=== PATIENT | female | born 1990 ===

== ENCOUNTER → 2016-09-08 | Outpatient (CLI) | payer OTHER ==
[2016-09-08 19:02] LABS: ALT/SGPT 40 U/L (12-78); BLOOD UREA NITROGEN 8 mg/dl (7-18); BUN/CREATININE RATIO 12.1 (10-20); CALCIUM 8.8 mg/dl (8.5-10.1); CARBON DIOXIDE 24 mmol/L (21-32); CHLORIDE 104 mmol/L (98-107); CREATININE 0.63 mg/dl (0.60-1.20); GLUCOSE 80 mg/dl (70-99); POTASSIUM 3.7 mmol/L (3.5-5.1); SODIUM 139 mmol/L (136-145)
[2016-09-08 19:13] LABS: ALB/GLOB RATIO 1.3 (0.9-2); ALKALINE PHOSPHATASE 87 U/L (45-117); AST/SGOT 31 U/L (15-37)
== END | disposition home or self-care (01) ==
LOC: C.LABSPEC 11:02
PROVIDERS: ATTEND Family Medicine
DX: R53.83 Other fatigue (principal)

== ENCOUNTER → 2018-04-15 | Outpatient (CLI) | payer OTHER | END | disposition home or self-care (01) | LOC: C.LABSPEC 17:55 | PROVIDERS: ATTEND Family Medicine | DX: E27.8 Other specified disorders of adrenal gland (principal) ==